=== PATIENT | female | born 1960 ===

== ENCOUNTER 2016-08-29 19:22 | Emergency (ER) | payer OTHER ==
[2016-08-29 19:32] VITALS: BP 130/83; PULSE 63; RESP 18; TEMP 97.9; O2SAT 98
--- NOTE | 2016-08-29 20:17 | ED PDOC ---
Lower Extremity Pain/Injury Chief Complaint (Provider): Patient denies fever today. Pt. reports body aches mostly localized to back History Per: Patient History/Exam Limitations: language barrier (Family Life Counselor Lowell Royal RN) Onset/Duration Of Symptoms: Days (four days) Current Symptoms Are (Timing): Still Present Pain Scale Rating Of: 10 <Jd Guevara - Last Filed: 08/29/16 21:00> <Mary Silva - Last Filed: 09/07/16 16:20> Time Seen by Provider: 08/29/16 19:32 Chief Complaint (Nursing): Fever Supervising Attending Note - Attestation: I have personally seen and examined this patient.: Yes I have fully participated in the care of the patient.: Yes <Mary Silva - Last Filed: 09/07/16 16:20> Past Medical History Vital Signs: Last Vital Signs Temp 97.9 F 08/29/16 19:27 Pulse 63 08/29/16 19:27 Resp 18 08/29/16 19:27 BP 130/83 08/29/16 19:27 Pulse Ox 98 08/29/16 19:27 - Medical History PMH: No Chronic Diseases - Surgical History Surgical History: Denies: Back Surgery Other surgeries: Ovarion torsion repair in [place] - Family History Family History: States: Other (Not contributory) - Social History Current smoker - smoking cessation education provided: No Alcohol: None Drugs: Denies <Jd Guevara - Last Filed: 08/29/16 21:00> Vital Signs: Last Vital Signs Temp 97.9 F 08/29/16 19:27 Pulse 63 08/29/16 19:27 Resp 18 08/29/16 19:27 BP 130/83 08/29/16 19:27 Pulse Ox 98 08/29/16 21:02 <Mary Silva - Last Filed: 09/07/16 16:20> - Home Medications Home Medications: Ambulatory Orders Medication Instructions Recorded Cyclobenzaprine [Cyclobenzaprine 10 mg PO TID PRN #15 tab 08/29/16 HCl] Ibuprofen [Motrin] 600 mg PO Q6H PRN #20 tab 08/29/16 - Allergies Allergies/Adverse Reactions: Allergies Allergy/AdvReac Type Severity Reaction Status Date / Time No Known Allergies Allergy Verified 08/10/15 09:34 Wells Criteria for PE - Wells Criteria for Pulmonary Embolism Clinical Signs and Symptoms of DVT: No P.E is #1 Diagnosis, or Equally Likely: No Heart Rate >100: No Immobilization at least 3 days;Surgery previous 4 weeks: No Previous, objectively diagnosed PE or DVT: No Hemoptysis: No Malignancy w/treatment within 6 months, or palliative: No Total Score: 0 <Jd Guevara - Last Filed: 08/29/16 21:00> Review of Systems Constitutional: Negative for: Fever, Chills Eyes: Negative for: Pain, Vision Change ENT: Negative for: Ear Pain, Nose Pain, Throat Pain Cardiovascular: Negative for: Chest Pain, Palpitations Respiratory: Negative for: Cough, Shortness of Breath, SOB with Exertion Gastrointestinal: Negative for: Nausea, Vomiting, Abdominal Pain, Diarrhea Genitourinary Female: Negative for: Dysuria, Frequency, Incontinence Musculoskeletal: Negative for: Neck Pain, Shoulder Pain, Arm Pain Skin: Negative for: Rash, Lesions Neurological: Negative for: Weakness, Numbness, Incoordination, Change in Speech Psych: Negative for: Anxiety, Depression, Suicidal ideation <Jd Guevara - Last Filed: 08/29/16 21:00> Physical Exam - Physical Exam Appears: Positive for: Non-toxic, No Acute Distress Head Exam: Positive for: ATRAUMATIC, NORMOCEPHALIC Skin: Positive for: Normal Color, Warm, Dry Eye Exam: Negative for: Conjunctival injection, Scleral icterus ENT: Negative for: Nasal Congestion, Pharyngeal Erythema, Tonsillar Exudate Neck: Negative for: Normal, Painless ROM, Supple, Decreased ROM Cardiovascular/Chest: Negative for: Regular Rate, Rhythm, Chest Non Tender Respiratory: Positive for: Normal Breath Sounds. Negative for: Rales, Rhonchi, Wheezing Gastrointestinal/Abdominal: Positive for: Soft. Negative for: Tenderness, Guarding, Rebound Back: Positive for: Muscle Spasm. Negative for: L CVA Tenderness, R CVA Tenderness, Vertebral Tenderness Extremity: Negative for: Pedal Edema, Calf Tenderness, Swelling <Jd Guevara - Last Filed: 08/29/16 21:00> - ECG O2 Sat by Pulse Oximetry: 98 - Progress ED Course And Treament: Ibuprofen 600mg stat Re-evaluation Time: 21:00 Condition: Improved <Jd Guevara - Last Filed: 08/29/16 21:00> Medical Decision Making Medical Decision Making: This is a 56 y.o. female with acute onset musculoskeletal pain mostly localzied to her back. Patient was in the ER on 08/12/16 discharged withs same complaint of back pain and discharged with cyclobenazaprine and naproxene which the patient admits she did not fill because of financial issues. Pt. improved with PO Ibuprofene. Pt. to follow up with [facility] with Dr. Kashif. Guevara. <Jd Guevara - Last Filed: 08/29/16 21:00> Medical Decision Makin yo with recurrent back pain. - PE WNL - Motrin - discharge <Mary Silva - Last Filed: 09/07/16 16:20> [place] Ankle Rules - Malleolar zone tenderness? Posterior edge or tip of lateral malleolus: No Posterior edge or tip of medial malleolus: No Inability to bear weight both immediately and in the ED: No - Midfoot zone tenderness? Base of 5th Metatarsal: No Navicular: No Inability to bear weight both immediately and in the ED: No - XRAY INDICATED Is an ankle x-ray indicated based on findings?: No <Jd Guevara - Last Filed: 08/29/16 21:00> Disposition - Patient ED Disposition Is Patient to be Admitted: No Discussed With : Mary Silva - Disposition Disposition: Routine/Home Disposition Time: 21:01 <Jd Guevara - Last Filed: 08/29/16 21:00> <Mary Silva - Last Filed: 09/07/16 16:20> - Clinical Impression Clinical Impression: Muscle spasm of back - Disposition Referrals: [facility] [Outside] Condition: IMPROVED Prescriptions: Cyclobenzaprine [Cyclobenzaprine HCl] 10 mg PO TID PRN #15 tab PRN Reason: Pain Ibuprofen [Motrin] 600 mg PO Q6H PRN #20 tab PRN Reason: Pain, Moderate (4-7) Instructions: Muscle Spasm (ED) Print Language: GREENLANDIC
== END 2016-08-29 21:16 | disposition home or self-care (01) ==
LOC: H.ER 19:22
DX: M62.830 Muscle spasm of back (principal)

== ENCOUNTER 2017-09-22 16:07 | Emergency (ER) | payer OTHER, SELFPAY ==
--- NOTE | 2017-09-22 16:51 | ED PDOC ---
HPI: General Adult Time Seen by Provider: 09/22/17 16:49 Chief Complaint (Nursing): Chest Pain Chief Complaint (Provider): cp/headache History Per: Patient (57 y/o female for evaluation of intermittent headache occipital x 2 days improving with meloxicam today. Notes dizziness associated with headache as well. Denies any weakness/difficulty with speech/walking. Notes chest pain 1 week ago left sided. ) Past Medical History Reviewed: Historical Data, Nursing Documentation, Vital Signs Vital Signs: Last Vital Signs Temp 98 F 09/22/17 16:13 Pulse 63 09/22/17 16:13 Resp 14 09/22/17 16:13 BP 136/83 09/22/17 16:13 Pulse Ox 98 09/22/17 16:51 - Surgical History Surgical History: Denies: Back Surgery - Family History Family History: States: No Known Family Hx - Home Medications Home Medications: Ambulatory Orders Medication Instructions Recorded Cyclobenzaprine [Cyclobenzaprine 10 mg PO TID PRN #15 tab 08/29/16 HCl] Ibuprofen [Motrin] 600 mg PO Q6H PRN #20 tab 08/29/16 Hydrocortisone 0.5% CREAM 0.5 gm TOP BID PRN #1 tube 09/22/17 [Cortizone 0.5% CREAM] Meloxicam 7.5 mg PO BID PRN #6 tablet 09/22/17 - Allergies Allergies/Adverse Reactions: Allergies Allergy/AdvReac Type Severity Reaction Status Date / Time No Known Allergies Allergy Verified 09/22/17 16:12 Review of Systems ROS Statement: Except As Marked, All Systems Reviewed And Found Negative Physical Exam - Reviewed Nursing Documentation Reviewed: Yes Vital Signs Reviewed: Yes - Physical Exam Appears: Positive for: Well, Non-toxic, No Acute Distress Head Exam: Positive for: ATRAUMATIC, NORMAL INSPECTION, NORMOCEPHALIC Skin: Positive for: Normal Color, Warm, DRY Eye Exam: Positive for: EOMI, Normal appearance, PERRL ENT: Positive for: Normal ENT Inspection Neck: Positive for: Normal, Painless ROM Cardiovascular/Chest: Positive for: Regular Rate, Rhythm Respiratory: Positive for: CNT, Normal Breath Sounds Gastrointestinal/Abdominal: Positive for: Normal Exam, Soft Back: Positive for: Normal Inspection Extremity: Positive for: Normal ROM Neurologic/Psych: Positive for: Alert, Oriented - Laboratory Results Result Diagrams: 09/22/17 17:20 09/22/17 17:20 - ECG O2 Sat by Pulse Oximetry: 98 - Progress ED Course And Treament: HEAD CT: IMPRESSION: No intracranial mass, hemorrhage or evidence of acute infarct. CXR: NAD PATIENT STATES SHE HAS NOT HAD HEADACHE TODAY. PAIN USUALLY NOTED OCCIPITAL REGION WHEN SHE HAS IT BUT RESOLVES WITH MELOXICAM. NOTES ADDITIONAL RASH PROXIMAL FOREARM. PHYSICAL EXAM: MILD SKIN IRRITATION NOTED PROXIMAL RIGHT FOREARM. Disposition - Clinical Impression Clinical Impression: Headache - Patient ED Disposition Is Patient to be Admitted: No - Disposition Referrals: [facility] [Outside] Disposition: Routine/Home Disposition Time: 18:31 Condition: FAIR Prescriptions: Hydrocortisone 0.5% CREAM [Cortizone 0.5% CREAM] 0.5 gm TOP BID PRN #1 tube PRN Reason: Itching / Pruritus Meloxicam 7.5 mg PO BID PRN #6 tablet PRN Reason: Pain, Moderate (4-7) Instructions: Headache, Adult, Skin Rash (DC) Forms: [employer] (Italian) Print Language: WELSH
[2017-09-22 17:41] LABS: BASO # 0.1 K/uL (0.0-0.2); BASO % 1.1 % (0.0-2.0); EOS # 0.1 K/uL (0.0-0.7); EOS % 1.5 % (0.0-4.0); HEMOGLOBIN 11.6 g/dL (12.0-16.0); LYMPH # 2.4 K/uL (1.0-4.3); LYMPH % 33.3 % (20.0-40.0); MEAN CELL VOLUME 89.5 fl (81.0-99.0); MEAN CORPUSCULAR HEMOGLOBIN 30.5 pg (27.0-31.0); MEAN CORPUSCULAR HGB CONC 34.1 g/dL (33.0-37.0); MEAN PLATELET VOLUME 7.8 fl (7.2-11.7); MONO # 0.4 K/uL (0.0-0.8); NEUT # 4.1 K/uL (1.8-7.0); NEUT % 58.1 % (50.0-75.0); NRBC % 0.1 % (0.0-0.0); RBC 3.81 Mil/uL (3.80-5.20); RED CELL DISTRIBUTION WIDTH 13.1 % (11.5-14.5); WHITE BLOOD COUNT 7.1 K/uL (4.8-10.8)
--- NOTE | 2017-09-22 17:42 | CT ---
PROCEDURE: CT HEAD WITHOUT CONTRAST. HISTORY: headache COMPARISON: None available. TECHNIQUE: Axial computed tomography images were obtained through the head/brain without intravenous contrast. Radiation dose: Total exam DLP = 756.29 mGy-cm. This CT exam was performed using one or more of the following dose reduction techniques: Automated exposure control, adjustment of the mA and/or kV according to patient size, and/or use of iterative reconstruction technique. FINDINGS: HEMORRHAGE: No intracranial hemorrhage. BRAIN: No mass effect or edema. No atrophy or chronic microvascular ischemic changes. VENTRICLES: Unremarkable. No hydrocephalus. CALVARIUM: Unremarkable. PARANASAL SINUSES: Unremarkable as visualized. No significant inflammatory changes. MASTOID AIR CELLS: Unremarkable as visualized. No inflammatory changes. OTHER FINDINGS: None. IMPRESSION: No intracranial mass, hemorrhage or evidence of acute infarct.
[2017-09-22 17:44] LABS: ALB/GLOB RATIO 1.1 (1.0-2.1); ALBUMIN 3.9 g/dL (3.5-5.0); ALT/SGPT 35 U/L (9-52); AST/SGOT 35 U/L (14-36); BLOOD UREA NITROGEN 23 mg/dl (7-17); CALCIUM 9.2 mg/dL (8.4-10.2); GFR AFRICAN-AMERICAN > 60; GFR NON-AFRICAN AMERICAN > 60
--- NOTE | 2017-09-22 17:56 | RAD ---
PROCEDURE: CHEST RADIOGRAPH, 1 VIEW HISTORY: Chest pain. COMPARISON: None available. FINDINGS: LUNGS: Clear. PLEURA: No pneumothorax or pleural fluid seen. CARDIOVASCULAR: No radiographic findings to suggest acute or significant cardiovascular disease. OSSEOUS STRUCTURES: No significant abnormalities. VISUALIZED UPPER ABDOMEN: Normal. OTHER FINDINGS: None. IMPRESSION: No active disease.
[2017-09-22 18:57] VITALS: BP 135/80; PULSE 75; RESP 16; TEMP 97.9; O2SAT 100
== END 2017-09-22 18:57 | disposition home or self-care (01) ==
LOC: H.ER 16:07
DX: R51 Headache (principal)